=== PATIENT | female | born 1965 | race Caucasian/White ===

== ENCOUNTER 2023-06-24 14:09 | Emergency (ER) | payer OTHER ==
[~2023-06-24] VITALS: Ht 148.6 cm; Wt 65.3 kg
[2023-06-24 14:24] VITALS: BP 141/70; PULSE 97; RESP 18; TEMP 97.7; O2SAT 98
[2023-06-24] MEDS: KETOROLAC 30 MG/ML VIAL IM ONE (16:35)
[2023-06-24] MEDS: methocarbamoL 500 MG TAB PO STA (16:36)
[2023-06-24] MEDS: ACETAMINOPHEN 325 MG TAB PO ONE (16:36)
[2023-06-24] MEDS ORDERED: IBUP-2213 PO (16:59)
[2023-06-24] MEDS ORDERED: LID5T TP (16:59)
== END 2023-06-24 17:09 | disposition home or self-care (01) ==
LOC: MED 14:09
DX: S16.1XXA Strain of muscle, fascia and tendon at neck level, initial encounter (principal); S39.012A Strain of muscle, fascia and tendon of lower back, initial encounter; S90.31XA Contusion of right foot, initial encounter; M25.511 Pain in right shoulder; Z79.899 Other long term (current) drug therapy; W01.198A Fall on same level from slipping, tripping and stumbling with subsequent striking against other object, initial encounter; Y93.89 Activity, other specified; Y92.89 Other specified places as the place of occurrence of the external cause; Y99.8 Other external cause status
CPT/HCPCS: 72100; 73030; 73630; 96372; 99284; J1885